=== PATIENT | male | born 1995 | race Hispanic/Latino ===

== ENCOUNTER 2018-07-25 11:59 | Day surgery (SDC) | payer BC, MEDICARE ==
[2018-07-25] MEDS ORDERED: NACL 0.9% 1000 ML 1,000 ML IV SCH (13:00)
--- NOTE | 2018-07-25 13:09 | Anesthesia Day of Surgery ---
Anesthesia Day of Surgery - Day of Surgery Patient Examined: Yes Patient H&P Reviewed: Yes Patient is NPO: Yes
--- NOTE | 2018-07-25 13:12 | Anesthesia Consultation ---
Anesthesia Consult and Med Hx Date of service: 07/25/18 - Airway Anesthetic Teeth Evaluation: Chipped ROM Head & Neck: Adequate Mental/Hyoid Distance: Adequate Mallampati Class: Class I Intubation Access Assessment: Good - Pre-Operative Health Status ASA Pre-Surgery Classification: ASA1 Proposed Anesthetic Plan: MAC
[2018-07-25] MEDS ORDERED: DIPRIVAN 10 MG/ML IV ONE ×2 (13:25→13:26)
[2018-07-25 14:23] VITALS: BP 106/69
--- NOTE | 2018-08-03 09:35 | Procedure Note ---
Date of procedure: 07/25/18 Pre-op diagnosis: Painless hematochezia Post-op diagnosis: same Procedure: Colonoscopy to cecum Description of procedure: Pt was placed in a left lateral decubitus position. He was sedated intravenously by anesthesia. The scope was introduced into the p t's rectum and was advanced retrograde while directly visualizing the colonic lumen. The prep was adequate. Once the cecum was identified, the scope was slowly withdrawn with careful, circumferential visualization of the colonic surface. No polyps, tumors, AVM's, ulcerations or diverticula were identified. Retroflexed view of the distal rectum was also performed and revealed no additional pathologic findings. Insufflated air was aspirated and the scope removed. Pt tolerated the procedure well. He was recovered in the GI recovery room. Anesthesia: MAC Surgeon: RICKY CASTILLO Estimated blood loss: none Pathology: none Condition: stable Disposition: same day
== END 2018-07-25 12:00 | disposition home or self-care (01) ==
LOC: GIO 11:59
PROVIDERS: ATTEND Surgery
DX: K92.1 Melena (principal); Z88.8 Allergy status to other drugs, medicaments and biological substances
CPT/HCPCS: 45378; J2704; J7030